=== PATIENT | female | born 1950 | race Caucasian/White ===

== ENCOUNTER 2018-01-07 14:25 | Emergency (ER) | payer OTHER ==
--- NOTE | 2018-01-07 14:33 | PDOC ---
History of Present Illness - General History Source: Patient Exam Limitations: No Limitations - History of Present Illness Initial Comments: 01/07/18 15:24 The patient is a 67 year old female with a significant PMH of anemia, seasonal allergies, thyroid disease, and hypertension who presents to the emergency department with 1 day of nose bleeding. The patient reports that she was sitting down eating at a diner 6 hours ago when her right nostril started to bleed. The patient states that she put a cotton ball with vaseline in it then noticed that her right nose bleed began to slow down. She reports that her right nose bagan to bleed again 3 hours after and she repeated the cotton ball with vaseline. The patient states that she took 2 advils today. She reports that she has experienced nose bleeds similar to this episode within the past 2- 3 years. The patient denies any lightheadedness, dizziness, nausea or vomiting. The patient denies any chest pain, shortness of breath or headache. She denies fever, chills, diarrhea and constipation. She denies any urinary symptoms. The patient denies any other complaints. Allergies: Amoxicillin trihydrate, potassium clavulanate Past surgical history: none reported Social history: None <Wilton Mccarthy - Last Filed: 01/07/18 15:24> <Susie Trivedi - Last Filed: 01/07/18 16:26> - General Chief Complaint: Nasal Bleeding Stated Complaint: NASAL BLEEDING Time Seen by Provider: 01/07/18 14:30 Past History <Wilton Mccarthy - Last Filed: 01/07/18 15:24> - Past Medical History Anemia: No Asthma: No Cancer: No Cardiac Disorders: No CVA: No COPD: No CHF: No Dementia: No Diabetes: No GI Disorders: No Disorders: No HTN: Yes Hypercholesterolemia: No Liver Disease: No Seizures: No Thyroid Disease: Yes (HYPO) - Surgical History Abdominal Surgery: No Appendectomy: No Cardiac Surgery: No Cholecystectomy: No Lung Surgery: No Neurologic Surgery: No Orthopedic Surgery: No - Suicide/Smoking/Psychosocial Hx Smoking Status: No Smoking History: Never smoked Have you smoked in the past 12 months: No Number of Cigarettes Smoked Daily: 0 If you are a former smoker, when did you quit?: FOR A SHORT TIME IN HER 20s Hx Alcohol Use: Yes (SOCIAL) Substance Use Type: Alcohol Hx Substance Use Treatment: No <Susie Trivedi - Last Filed: 01/07/18 16:26> - Past Medical History Allergies/Adverse Reactions: Allergies Allergy/AdvReac Type Severity Reaction Status Date / Time amoxicillin trihydrate Allergy Mild Nausea Verified 01/07/18 14:28 [From Augmentin] potassium clavulanate AdvReac Mild Nausea,BAD Verified 01/07/18 14:28 [From Augmentin] TASTE IN MOUTH potassium clavula Allergy Mild Nausea Uncoded 01/07/18 14:28 *RETIRED-04/17/12 Home Medications: Ambulatory Orders Cetirizine HCl [Zyrtec -] 10 mg PO DAILY 02/16/15 Levothyroxine [Synthroid -] 25 mcg PO DAILY 02/16/15 Multivitamins [Multivit ([facility])] 1 tab PO DAILY #0 tab 02/19/15 Cholecalciferol (Vitamin D3) [Vitamin D3] 1,000 unit PO 01/07/18 Clarithromycin [Biaxin -] 500 mg PO BID #10 tablet 01/07/18 Clarithromycin [Biaxin -] 500 mg PO BID #10 tablet 01/07/18 Review of Systems - Review of Systems Able to Perform ROS?: Yes Comments:: 01/07/18 15:24 GENERAL/CONSTITUTIONAL: No fever or chills. No weakness. HEAD, EYES, EARS, NOSE AND THROAT: (+)right nose bleed, No change in vision. No ear pain or discharge. No sore throat. CARDIOVASCULAR: No chest pain or shortness of breath. RESPIRATORY: No cough, wheezing, or hemoptysis. GASTROINTESTINAL: No nausea, vomiting, diarrhea or constipation. GENITOURINARY: No dysuria, frequency, or change in urination. MUSCULOSKELETAL: No joint or muscle swelling or pain. No neck or back pain. SKIN: No rash NEUROLOGIC: No headache, vertigo, loss of consciousness, or change in strength/ sensation. ENDOCRINE: No increased thirst. No abnormal weight change. HEMATOLOGIC/LYMPHATIC: No anemia, easy bleeding, or history of blood clots. ALLERGIC/IMMUNOLOGIC: No hives or skin allergy. <Wilton Mccarthy - Last Filed: 01/07/18 15:24> *Physical Exam - Vital Signs Last Vital Signs Temp Pulse Resp BP Pulse Ox 98.1 F 80 20 157/98 97 01/07/18 14:26 01/07/18 14:26 01/07/18 14:26 01/07/18 14:26 01/07/18 14:26 - Physical Exam Comments: 01/07/18 15:25 GENERAL: Awake, alert, and fully oriented, in no acute distress HEAD: No signs of trauma EYES: PERRLA, EOMI, sclera anicteric, conjunctiva clear ENT: (+)dried blood in nares. Auricles normal inspection, hearing grossly normal , oropharynx clear without exudates. Moist mucosa NECK: Normal ROM, supple, no lymphadenopathy, JVD, or masses LUNGS: Breath sounds equal, clear to auscultation bilaterally. No wheezes, and no crackles HEART: Regular rate and rhythm, normal S1 and S2, no murmurs, rubs or gallops ABDOMEN: Soft, nontender, normoactive bowel sounds. No guarding, no rebound. No masses EXTREMITIES: Normal range of motion, no edema. No clubbing or cyanosis. No cords, erythema, or tenderness NEUROLOGICAL: Cranial nerves II through XII grossly intact. Normal speech, normal gait SKIN: Warm, Dry, normal turgor, no rashes or lesions noted. <Wilton Mccarthy - Last Filed: 01/07/18 15:24> Medical Decision Making - Medical Decision Making 01/07/18 15:11 a/p: 67yo female with epistaxis from the R nare today -no posterior pharynx bleeding -suspect anterior nose bleed -no active bleeding upon arrival -gauze removed with large amount of clot on the cotton -afrin applied to the nose -no packed with 4.5cm rapid rhino -no active bleeding -posterior pharynx clear -will monitor -pt tolerated the packing well 01/07/18 16:25 re-eval: no bleeding, packing in place pt will be d/c to home with ent follow up will place on clarithromycin <Susie Trivedi - Last Filed: 01/07/18 16:26> *DC/Admit/Observation/Transfer - Attestations Scribe Attestion: 01/07/18 15:25 Documentation prepared by Wilton Mccarthy, acting as certified medical records coder for Susie Trivedi MD <Wilton Mccarthy - Last Filed: 01/07/18 15:24> - Discharge Dispostion Decision to Admit order: No - Attestations Physician Attestion: 01/07/18 15:17 I, Dr. Susie Trivedi, DO, attest that this document has been prepared under my direction and personally reviewed by me in its entirety. I further attest, that it accurately reflects all work, treatment, procedures and medical decision -making performed by me. <Susie Trivedi - Last Filed: 01/07/18 16:26> Diagnosis at time of Disposition: Epistaxis - Discharge Dispostion Disposition: HOME Condition at time of disposition: Stable - Prescriptions Prescriptions: Clarithromycin [Biaxin -] 500 mg PO BID #10 tablet Clarithromycin [Biaxin -] 500 mg PO BID #10 tablet - Referrals Referrals: Teofilo Chiang MD [Staff Physician] - - Patient Instructions Printed Discharge Instructions: DI for Nosebleed Additional Instructions: Please make an appointment to see your ENT or Dr. Chiang on Monday or monday of next week. Please do not remove the packing. Please do not sniff or blow your nose. Please take all antibiotics as prescribed.
[2018-01-07] MEDS ORDERED: OXYMETAZOLINE 0.05% NASAL SOLUTION 15 ML BOTTLE NS ONE ×2 (14:44→14:45)
[2018-01-07 14:58] VITALS: BP 157/98; PULSE 80; TEMP 98.1; BMI 25.7
== END 2018-01-07 16:13 | disposition home or self-care (01) ==
LOC: FER 14:25
DX: R04.0 Epistaxis (principal); D64.9 Anemia, unspecified; E03.9 Hypothyroidism, unspecified; I10 Essential (primary) hypertension; Z87.891 Personal history of nicotine dependence
CPT/HCPCS: 99281-25